=== PATIENT | female | born 1960 | race Caucasian/White ===

== ENCOUNTER 2017-05-27 19:19 | Emergency (ER) | payer OTHER, MEDICAID ==
[~2017-05-27 19:19] MED LIST: DIVA250T PO; IBUP800T23 PO; LAMO150T PO
[2017-05-27 19:20] VITALS: BP 129/73; PULSE 95; RESP 18; TEMP 98; O2SAT 95
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
[2017-05-27] MEDS ORDERED: IBUPROFEN 600 MG TAB PO ONE (20:00)
[2017-05-27] MEDS ORDERED: CEPHALEXIN MONOHYDRATE 500 MG CAP PO ONE (20:00)
[2017-05-27] MEDS ORDERED: IBUP-232 PO (20:03)
[2017-05-27] MEDS ORDERED: CEPH-460 PO (20:03)
== END 2017-05-27 20:14 | disposition home or self-care (01) ==
LOC: NEPD 19:19
DX: S61.217A Laceration without foreign body of left little finger without damage to nail, initial encounter (principal); F17.210 Nicotine dependence, cigarettes, uncomplicated; W26.0XXA Contact with knife, initial encounter; Y93.G1 Activity, food preparation and clean up; Y92.000 Kitchen of unspecified non-institutional (private) residence as the place of occurrence of the external cause
CPT/HCPCS: 99283

== ENCOUNTER 2017-09-18 13:33 | Emergency (ER) | payer OTHER, MEDICAID ==
[~2017-09-18] VITALS: Ht 167.6 cm; Wt 65.9 kg
[~2017-09-18 13:33] MED LIST changes: +CEPH-460 PO; +IBUP-232 PO
[2017-09-18 13:34] VITALS: BP 146/89; PULSE 64; RESP 20; TEMP 97.5; O2SAT 100
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
--- NOTE | 2017-09-18 15:25 | RADRPT ---
EXAM DATE/TIME: 09/18/2017 14:36 [facility] COMPARISON: No previous studies available for comparison. INDICATIONS : Dropped something on her nose this morning. Pain on left side. MEDICAL HISTORY : None. SURGICAL HISTORY : None. ENCOUNTER: Initial ACUITY: 1 day PAIN SCORE: 7/10 LOCATION: Left Nasal bones. FINDINGS: Lateral and Ruiz views of the nasal bones demonstrate no evidence of fracture. There is no signifi cant soft tissue swelling. The infraorbital rims are intact. CONCLUSION: Negative trauma study. Lorenzo Heard MD on September 18, 2017 at 15:21 Board Certified Radiologist. This report was verified electronically.
== END 2017-09-18 16:05 | disposition home or self-care (01) ==
LOC: NEPK 13:33
DX: S00.83XA Contusion of other part of head, initial encounter (principal); F32.9 Major depressive disorder, single episode, unspecified; F17.210 Nicotine dependence, cigarettes, uncomplicated; W22.8XXA Striking against or struck by other objects, initial encounter; Z88.0 Allergy status to penicillin; Z85.828 Personal history of other malignant neoplasm of skin; Z79.899 Other long term (current) drug therapy
CPT/HCPCS: 70160; 99283

== ENCOUNTER 2018-01-07 09:32 | Inpatient (IN) | payer OTHER, MEDICAID, MEDICARE ==
[~2018-01-07] VITALS: Ht 165.1 cm; Wt 62.9 kg
[~2018-01-07 09:32] MED LIST changes: -CEPH-460 PO; -IBUP-232 PO; -IBUP800T23 PO
[2018-01-07 09:38] VITALS: BP 121/88; PULSE 83; RESP 18; TEMP 98.2; O2SAT 98
[2018-01-07] MEDS ORDERED: SODIUM CHLOR 0.9% 1000 ML INJ 1,000 ML IV ONE (10:00)
[2018-01-07] MEDS ORDERED: VANCOMYCIN INJ 1,000 MG in SODIUM CHLOR 0.9% 250 ML INJ 250 ML IV ONE (10:00)
[2018-01-07] MEDS ORDERED: AZTREONAM INJ 2,000 MG in SODIUM CHLORIDE 0.9% INJ 100 ML IV ONE (10:00)
[2018-01-07] MEDS ORDERED: TETANUS/DIPHTHERIA TOXOID ADULT 0.5 ML VIAL IM ONE (10:00)
[2018-01-07 10:21] VITALS: O2SAT 98
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
[2018-01-07 10:47] LABS: AUTOMATED NEUTROPHIL # 7.6 TH/MM3 (1.8-7.7); BASOPHIL % 0.4 % (0.0-2.0); EOSINOPHIL # 0.1 TH/MM3 (0-0.4); HEMATOCRIT 34.2 % (35.0-46.0); HEMOGLOBIN 11.5 GM/DL (11.6-15.3); LYMPH % 21.6 % (9.0-44.0); LYMPHOCYTE # 2.4 TH/MM3 (1.0-4.8); MEAN CELL VOLUME 87.8 FL (80.0-100.0); MEAN CORPUSCULAR HEMOGLOBIN 29.6 PG (27.0-34.0); MEAN CORPUSCULAR HGB CONC 33.7 % (32.0-36.0); MEAN PLATELET VOLUME 7.3 FL (7.0-11.0); MONO % 8.4 % (0.0-8.0); MONOCYTE # 0.9 TH/MM3 (0-0.9); NEUT % 68.6 % (16.0-70.0); PLATELET COUNT 314 TH/MM3 (150-450); RED CELL DISTRIBUTION WIDTH 13.4 % (11.6-17.2); WHITE BLOOD COUNT 11.1 TH/MM3 (4.0-11.0)
[2018-01-07 10:58] LABS: INTERNATIONAL NORMALIZED RATIO 1.1 RATIO; PROTHROMBIN TIME - PATIENT 10.7 SEC (9.8-11.6)
[2018-01-07 11:07] LABS: ALBUMIN 2.5 GM/DL (3.4-5.0); ALT (GPT) 103 U/L (10-53); AST (GOT) 34 U/L (15-37); BICARBONATE 28.5 MEQ/L (21.0-32.0); BLOOD UREA NITROGEN 16 MG/DL (7-18); CALCIUM 8.1 MG/DL (8.5-10.1); CHLORIDE 101 MEQ/L (98-107); CREATININE 0.69 MG/DL (0.50-1.00); GLOMERULAR FILTRATION RATE 88 ML/MIN (>89); GLUCOSE,RANDOM 81 MG/DL (74-106); MAGNESIUM 2.2 MG/DL (1.5-2.5); PHOSPHORUS 2.9 MG/DL (2.5-4.9); SODIUM (NA) 139 MEQ/L (136-145)
[2018-01-07 11:09] LABS: ALKALINE PHOSPHATASE 113 U/L (45-117); TOTAL BILIRUBIN ADULT 0.4 MG/DL (0.2-1.0); TOTAL PROTEIN 7.3 GM/DL (6.4-8.2)
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
[2018-01-07] MEDS ORDERED: DIVA500T3 PO (11:43)
[2018-01-07] MEDS ORDERED: TRAZ50TA12 PO (11:44)
[2018-01-07] MEDS ORDERED: LAMO25TA PO (11:44)
[2018-01-07] MEDS ORDERED: ONDANSETRON HCL 4 MG/2 ML VIAL IV ONE (12:00)
[2018-01-07] MEDS ORDERED: LIDOCAINE HCL 1% PF 5 ML SYRINGE OTHER ONE (12:00)
[2018-01-07] MEDS ORDERED: LACTATED RINGER'S 1000 ML INJ 1,000 ML IV ONE (12:00)
[2018-01-07] MEDS ORDERED: DEXAMETHASONE SOD PHOS 4 MG/ML VIAL IV ONE (12:00)
[2018-01-07] MEDS ORDERED: PROPOFOL 200 MG/20 ML AMP IV ONE (12:00)
[2018-01-07] MEDS ORDERED: SUCCINYLCHOLINE CHLORIDE 200 MG/10 ML VIAL IV ONE (12:00)
[2018-01-07] MEDS ORDERED: PHENYLEPH/NS 1000 MCG/10 ML SYR IV ONE (12:00)
[2018-01-07] MEDS ORDERED: ePHEDrine/NS 25 MG/5 ML SYRINGE IV ONE (12:00)
--- NOTE | 2018-01-07 12:31 | HHI.HP ---
HPI Service [facility] Hospitalists Primary Care Physician Unknown Admission Diagnosis Diagnoses: Travel History International Travel<30 Days: No Contact w/Intl Traveler <30 Da: No Traveled to Known Affected Are: No History of Present Illness This is a homeless woman who presented to [facility] ED with concern for leg infection. She states 6 weeks ago she scratched her leg on her bike. States it was healing well then three weeks ago she scratched it on a piece of metal at her boyfriends house. She states she had a tetanus shot 2 years ago. She was given another tetanus shot in the ED. Medical history significant for bipolar, denies any other medical problems including diabetes. She denies fevers and chills. States the leg has been draining and is painful. The patient received vancomycin and aztreonam in the ED. ER physician discussed case with ortho, ortho requested a CT with contrast to evaluate for abscess. She has a new PCP Dr. Traore. She also follows with Riaz De Jesus. Review of Systems Constitutional: COMPLAINS OF: Chills, DENIES: Fever Eyes: DENIES: Blurred vision, Vision loss Ears, nose, mouth, throat: DENIES: Tinnitus, Hoarseness, Ear Pain Respiratory: DENIES: Cough, Sputum production, Shortness of breath Cardiovascular: DENIES: Chest pain, Palpitations Gastrointestinal: DENIES: Abdominal pain, Constipation, Nausea, Vomiting Musculoskeletal: COMPLAINS OF: Joint pain, Joint Swelling Integumentary: COMPLAINS OF: Rash Neurologic: COMPLAINS OF: Localized weakness, DENIES: Speech Problems Psychiatric: COMPLAINS OF: Anxiety, Depression Past Family Social History Past Medical History Bipolar Past Surgical History Surgery on both knees Tonsillectomy Tubal ligation Reported Medications Lamotrigine 25 Mg Tab 25 Mg PO DAILY HS Divalproex ER (Divalproex Sodium) 500 Mg Tab 500 Mg PO BID Allergies: Coded Allergies: naproxen (Unverified Allergy, Mild, 01/07/18) penicillin G (Unverified Allergy, Mild, 01/07/18) Family History Mother with HTN and DM Physical Exam Vital Signs Vital Signs Date Time Temp Pulse Resp B/P (MAP) Pulse Ox O2 Delivery O2 Flow Rate FiO2 01/07/18 10:21 98 Room Air 01/07/18 10:21 98 Room Air 01/07/18 09:38 98.2 83 18 121/88 (99) 98 Physical Exam GENERAL: This is a well-nourished, well-developed patient, in no apparent distress. SKIN: Left lower extremity- anterior tibia with large necrotic wound, superior to this large wound is an additional 2 cm wound, both with eschar and surrounding erythema, both are draining, both are malodorous. HEAD: Atraumatic. Normocephalic. No temporal or scalp tenderness. EYES: Pupils equal round and reactive. Extraocular motions intact. No scleral icterus. No injection or drainage. ENT: Nose without bleeding, purulent drainage or septal hematoma. Throat without erythema, tonsillar hypertrophy or exudate. Uvula midline. Airway patent. NECK: Trachea midline. No JVD or lymphadenopathy. Supple, nontender, no meningeal signs. CARDIOVASCULAR: Regular rate and rhythm without murmurs, gallops, or rubs. RESPIRATORY: Clear to auscultation. Breath sounds equal bilaterally. No wheezes , rales, or rhonchi. GASTROINTESTINAL: Abdomen soft, non-tender, nondistended. No hepato-splenomegaly , or palpable masses. No guarding. MUSCULOSKELETAL: She is able to lift both legs against gravity. NEUROLOGICAL: Awake and alert. Motor and sensory grossly within normal limits. Normal speech. Laboratory Laboratory Tests Test 01/07/18 10:10 01/07/18 10:15 White Blood Count 11.1 Red Blood Count 3.90 Hemoglobin 11.5 Hematocrit 34.2 Mean Corpuscular Volume 87.8 Mean Corpuscular Hemoglobin 29.6 Mean Corpuscular Hemoglobin Concent 33.7 Red Cell Distribution Width 13.4 Platelet Count 314 Mean Platelet Volume 7.3 Neutrophils (%) (Auto) 68.6 Lymphocytes (%) (Auto) 21.6 Monocytes (%) (Auto) 8.4 Eosinophils (%) (Auto) 1.0 Basophils (%) (Auto) 0.4 Neutrophils # (Auto) 7.6 Lymphocytes # (Auto) 2.4 Monocytes # (Auto) 0.9 Eosinophils # (Auto) 0.1 Basophils # (Auto) 0.0 CBC Comment DIFF FINAL Differential Comment Prothrombin Time 10.7 Prothromb Time International Ratio 1.1 Activated Partial Thromboplast Time 25.1 Blood Urea Nitrogen 16 Creatinine 0.69 Random Glucose 81 Total Protein 7.3 Albumin 2.5 Calcium Level 8.1 Phosphorus Level 2.9 Magnesium Level 2.2 Alkaline Phosphatase 113 Aspartate Amino Transf (AST/SGOT) 34 Alanine Aminotransferase (ALT/SGPT) 103 Total Bilirubin 0.4 Sodium Level 139 Potassium Level 3.4 Chloride Level 101 Carbon Dioxide Level 28.5 Anion Gap 10 Estimat Glomerular Filtration Rate 88 Lipase 46 Lactic Acid Level 0.9 Date/Time Source Procedure Growth Status 01/07/18 10:15 Blood Peripheral Aerobic Blood Culture Pending Received 01/07/18 10:15 Blood Peripheral Anaerobic Blood Culture Pending Received Result Diagram: 01/07/18 1010 01/07/18 1010 Imaging Last Impressions Chest X-Ray 01/07/18 0956 Signed Impressions: Service Date/Time: Sunday, January 07, 2018 10:04 - CONCLUSION: Small opacity in the lower lateral right lung. No evidence of pneumothorax. Recommend followup films. Km Márquez MD Tibia/Fibula X-Ray 01/07/18 0000 Signed Impressions: Service Date/Time: Sunday, January 07, 2018 10:10 - CONCLUSION: 1. Osseous structures of the leg are intact. 2. Multifocal areas of gas in the soft tissues of the mid and distal leg without radiopaque foreign body. MD Nithya Balbuena VTE Risk Assessment Caprini VTE Risk Assessment: No/Low Risk (score <= 1) Caprini Risk Assessment Model Point Value = 1 Point Value = 2 Point Value = 3 Point Value = 5 Age 41-60 Minor surgery BMI > 25 kg/m2 Swollen legs Varicose veins or History of unexplained or recurrent spontaneous Oral contraceptives or hormone replacement Sepsis (< 1 month) Serious lung disease, including pneumonia (< 1 month) Abnormal pulmonary function Acute myocardial infarction Congestive heart failure (< 1 month) History of inflammatory bowel disease Medical patient at bed rest Age 61-74 Arthroscopic surgery Major open surgery (> 45 min) Laparoscopic surgery (> 45 min) Malignancy Confined to bed (> 72 hours) Immobilizing plaster cast Central venous access Age >= 75 History of VTE Family history of VTE Factor V Leiden Prothrombin [id number] Lupus anticoagulant Anticardiolipin antibodies Elevated serum homocysteine Heparin-induced thrombocytopenia Other congenital or acquired thrombophilia Stroke (< 1 month) Elective arthroplasty Hip, pelvis, or leg fracture Acute spinal cord injury (< 1 month) Prophylaxis Regimen Total Risk Factor Score Risk Level Prophylaxis Regimen 0-1 Low Early ambulation 2 Moderate Order ONE of the following: *Sequential Compression Device (SCD) *Heparin 5000 units SQ BID 3-4 Higher Order ONE of the following medications: *Heparin 5000 units SQ TID *Enoxaparin/Lovenox 40 mg SQ daily (WT < 150 kg, CrCl > 30 mL/min) *Enoxaparin/Lovenox 30 mg SQ daily (WT < 150 kg, CrCl > 10-29 mL/min) *Enoxaparin/Lovenox 30 mg SQ BID (WT < 150 kg, CrCl > 30 mL/min) AND/OR *Sequential Compression Device (SCD) 5 or more Highest Order ONE of the following medications: *Heparin 5000 units SQ TID (Preferred with Epidurals) *Enoxaparin/Lovenox 40 mg SQ daily (WT < 150 kg, CrCl > 30 mL/min) *Enoxaparin/Lovenox 30 mg SQ daily (WT < 150 kg, CrCl > 10-29 mL/min) *Enoxaparin/Lovenox 30 mg SQ BID (WT < 150 kg, CrCl > 30 mL/min) AND *Sequential Compression Device (SCD) Assessment and Plan Problem List: (1) Bipolar 1 disorder ICD Code: F31.9 - Bipolar disorder, unspecified (2) Hypokalemia ICD Code: E87.6 - Hypokalemia (3) Skin necrosis ICD Code: I96 - Gangrene, not elsewhere classified Status: Acute Assessment and Plan This is a 57 yo female with Left lower leg cellulitis - given exam, concern for osteo - ED physician spoke with ortho Dr. Norton, they would like a CT with contrast, this is pending - patient received one dose of vanc and aztreonam in the ED, will continue this (PCN allergic) - ID has been consulted - blood cultures ordered - wound cultures ordered - CRP ordered - lactic acid 0.9 - pain control Bipolar - resumed patients home meds Hypokalemia - replaced CM consulted for DC needs DVT prophy SCD to right LE Code Status Full. Discussed Condition With Dr. Cabrera Patient Physician Certification 2 Midnight Certification Type: Admission for Inpatient Services Order for Inpatient Services The services are ordered in accordance with Medicare regulations or non- Medicare payer requirements, as applicable. In the case of services not specified as inpatient-only, they are appropriately provided as inpatient services in accordance with the 2-midnight benchmark. Estimated LOS (days): 2 days is the estimated time the patient will need to remain in the hospital, assuming treatment plan goals are met and no additional complications. Post-Hospital Plan: Not yet determined Wilma Yeung MD January 07, 2018 12:31
[2018-01-07] MEDS ORDERED: IOHEXOL 350 MG/ML 10 ML VIAL (for RAD DIAG) IVCONTRAST ONE (12:45)
--- NOTE | 2018-01-07 13:13 | RADRPT ---
EXAM DATE/TIME: 01/07/2018 12:18 [place] COMPARISON: TIBIA/FIBULA LEFT (AP/LAT), January 07, 2018, 10:10. INDICATIONS : 3 week old wound to mid lower leg, lateral side. IV CONTRAST: 94 cc Omnipaque 350 (iohexol) IV RADIATION DOSE: 7.29 CTDIvol (mGy) MEDICAL HISTORY : Skin cancer SURGICAL HISTORY : Tubal ligation. Hysterectomy. ENCOUNTER: Initial ACUITY: 1 day PAIN SCALE: 0/10 LOCATION: Left Lower leg. TECHNIQUE: Volumetric scanning of the tibia and fibula was performed. Using automated exposure control and adju stment of the mA and/or kV according to patient size, radiation dose was kept as low as reasonably ac hievable to obtain optimal diagnostic quality images. DICOM format image data is available [facility] for review and comparison. FINDINGS: The osseous structures are intact. There are multifocal areas of cutaneous abnormality involving the anterior tissues of the mid calf th e distal calf and the medial tissues involving the proximal and distal calf. There is associated cut aneous thickening measuring up to 7 mm in thickness. There is no gas seen in the muscular layer. Th ere is also prominent soft tissue thickening without gas in the posterior right ankle measuring up to 1.8 cm. No radiopaque foreign body seen. CONCLUSION: Soft tissue gas seen on conventional radiographs is confined to the cutaneous and subcutaneous tissue s of the mid to distal calf. No deep soft tissue gas is seen. The osseous structures are radiograph ically intact. Km Márquez MD on January 07, 2018 at 13:04 Board Certified Radiologist. This report was verified electronically.
[2018-01-07] MEDS: DIVALPROEX SODIUM E.R. 500 MG TAB PO SCH ×2 (13:14→22:35)
[2018-01-07] MEDS ORDERED: POTASSIUM CHLORIDE 10 MEQ CONTROLLED RELEASE TAB PO ONE (13:30)
[2018-01-07 16:00] VITALS: BP 125/83; PULSE 74; RESP 15; TEMP 96; O2SAT 100
--- NOTE | 2018-01-07 16:39 | PD.ID.CON ---
History of Present Illness Service ID Consult Requested By Dr Yeung Reason for Consult CARLYLE ne rotic wound Primary Care Physician Unknown Diagnoses: History of Present Illness 57 yo F non diabetci preesent with draining L calf wound, worsening swelling , redness, drainage for 2-3 weeks She developped black discoloration over the area + preceding penetrating accidental trauma No fever Minimal leukocytosis, though ANC is wnl ? h/o ETOHism + tobnacco positive CT showed air in soft tissues Review of Systems Except as stated in HPI: all other systems reviewed are Neg Past Family Social History Allergies: Coded Allergies: naproxen (Unverified Allergy, Mild, 01/07/18) penicillin G (Unverified Allergy, Mild, 01/07/18) Past Medical History skin ca tobaccoism depression Past Surgical History TL Active Ordered Medications azactam vanco Family History reviewed/NC to current ID problem Social History + Tobacco.b 1/2 ppd No ETOH. No Illicit Drugs. Physical Exam Vital Signs Vital Signs Date Time Temp Pulse Resp B/P (MAP) Pulse Ox O2 Delivery O2 Flow Rate FiO2 01/07/18 10:21 98 Room Air 01/07/18 10:21 98 Room Air 01/07/18 09:38 98.2 83 18 121/88 (99) 98 Physical Exam CONSTITUTIONAL/GENERAL: This is a thin patient, in no apparent distress. TUBES/LINES/DRAINS: SKIN: No jaundice, rashes, or lesions. Skin temperature appropriate. Not diaphoretic. HEAD: Atraumatic. Normocephalic. EYES: Pupils equal and round and reactive. Extraocular motions intact. No scleral icterus. No injection or drainage. Fundi not examined. ENT: Hearing grossly normal. Nose without bleeding or purulent drainage. Throat without visible erythema, exudates, masses, or lesions. POor dentition NECK: Trachea midline. Supple, nontender. No palpable thyroid enlargement or nodularity. CARDIOVASCULAR: Regular rate and rhythm without murmurs, gallops, or rubs. No JVD. Peripheral pulses symmetric. Excellent 2/2 b/l DP pulses RESPIRATORY/CHEST: Symmetric, unlabored respirations. Clear to auscultation. Breath sounds equal bilaterally. No wheezes, rales, or rhonchi. GASTROINTESTINAL: Abdomen soft, non-tender, nondistended. No hepato-splenomegaly , or palpable masses. No guarding. Bowel sounds present. GENITOURINARY: Without palpable bladder distension. MUSCULOSKELETAL: Extremities without clubbing, cyanosis, no loss of skin appendages Large wound with irregular boredrs and necrotic tissues in bed + serosangius d/c + strong anaerobic odor edema. No joint tenderness or effusion noted. No calf tenderness. No mottling or clubbing. There is ascending cellulitis and lymphangitis and inner thigh area has some red streaks NEUROLOGICAL: Awake and alert. Motor and sensory grossly within normal limits. Follows commands. Cognitively sharp. Moves all extremities. PSYCHIATRIC: No obvious anxiety/depression. no apparent hallucinations or other psychotic thought process. Laboratory Laboratory Tests Test 01/07/18 10:10 01/07/18 10:15 White Blood Count 11.1 Red Blood Count 3.90 Hemoglobin 11.5 Hematocrit 34.2 Mean Corpuscular Volume 87.8 Mean Corpuscular Hemoglobin 29.6 Mean Corpuscular Hemoglobin Concent 33.7 Red Cell Distribution Width 13.4 Platelet Count 314 Mean Platelet Volume 7.3 Neutrophils (%) (Auto) 68.6 Lymphocytes (%) (Auto) 21.6 Monocytes (%) (Auto) 8.4 Eosinophils (%) (Auto) 1.0 Basophils (%) (Auto) 0.4 Neutrophils # (Auto) 7.6 Lymphocytes # (Auto) 2.4 Monocytes # (Auto) 0.9 Eosinophils # (Auto) 0.1 Basophils # (Auto) 0.0 CBC Comment DIFF FINAL Differential Comment Prothrombin Time 10.7 Prothromb Time International Ratio 1.1 Activated Partial Thromboplast Time 25.1 Blood Urea Nitrogen 16 Creatinine 0.69 Random Glucose 81 Total Protein 7.3 Albumin 2.5 Calcium Level 8.1 Phosphorus Level 2.9 Magnesium Level 2.2 Alkaline Phosphatase 113 Aspartate Amino Transf (AST/SGOT) 34 Alanine Aminotransferase (ALT/SGPT) 103 Total Bilirubin 0.4 Sodium Level 139 Potassium Level 3.4 Chloride Level 101 Carbon Dioxide Level 28.5 Anion Gap 10 Estimat Glomerular Filtration Rate 88 C-Reactive Protein 10.30 Lipase 46 Lactic Acid Level 0.9 Date/Time Source Procedure Growth Status 01/07/18 10:15 Blood Peripheral Aerobic Blood Culture Pending Received 01/07/18 10:15 Blood Peripheral Anaerobic Blood Culture Pending Received 01/07/18 13:10 Wound Leg Gram Stain Pending Received 01/07/18 13:10 Wound Leg Wound Culture Pending Received Result Diagram: 01/07/18 1010 01/07/18 1010 Imaging Last Impressions Chest X-Ray 01/07/18 0956 Signed Impressions: Service Date/Time: Sunday, January 07, 2018 10:04 - CONCLUSION: Small opacity in the lower lateral right lung. No evidence of pneumothorax. Recommend followup films. Km Márquez MD Tibia/Fibula X-Ray 01/07/18 0000 Signed Impressions: Service Date/Time: Sunday, January 07, 2018 10:10 - CONCLUSION: 1. Osseous structures of the leg are intact. 2. Multifocal areas of gas in the soft tissues of the mid and distal leg without radiopaque foreign body. Km Márquez MD Lower Extremity CT 01/07/18 0000 Signed Impressions: Service Date/Time: Sunday, January 07, 2018 12:18 - CONCLUSION: Soft tissue gas seen on conventional radiographs is confined to the cutaneous and subcutaneous tissues of the mid to distal calf. No deep soft tissue gas is seen. The osseous structures are radiographically intact. Km Márquez MD Assessment and Plan Assessment and Plan Gas gangrene LLE following traume - likley mixed aerobic/anaerobic infx - this is a limb threatening infection High grade self reported PCN allergy:hives No e/o vascular insufficiency clinically despite + tobacco hx REC's: surgical treatment is important. Will need urgent debridement of all nectoric tissue with likley VAC placement cotn abx: vanco azactam and add flagyl for anaerobic coverage add clindamycin to cover for GAS further rec's to follow P clx case was dw Dr Winters Discussed Condition With Trinity Yousif RN, MD January 07, 2018 16:39
[2018-01-07] MEDS: CLINDAMYCIN 900 MG/NS PREMIX 50 ML IV SCH ×2 (17:00→17:47)
[2018-01-07] MEDS: metroNIDAZOLE 500 MG INJ 100 ML IV SCH ×2 (17:04→17:53)
[2018-01-07] MEDS: AZTREONAM INJ 2,000 MG in SODIUM CHLORIDE 0.9% INJ 100 ML IV SCH ×2 (17:04→17:45)
--- NOTE | 2018-01-07 17:37 | HHI.PR ---
Immediate Post Op Note Procedure Date: January 07, 2018 Pre Op Diagnosis: left lower extremity gas gangrene Post Op Diagnosis: same Surgeon: Sorin Winters MD Technician Anatomic Pathology(s): see or sheet Procedure: excisional debridement of soft tissue to left lower extremity with vac placement Findings: purulent drainage Complications: none Specimen(s) removed: abscess Estimated blood loss: 20cc Anesthesia: General Drains: Hemovac Patient to: PACU Patient Condition: Fair Sorin Winters MD January 07, 2018 17:37
--- NOTE | 2018-01-07 17:48 | MB ---
cc: Sorin Winters MD DATE: 01/07/2018 CHIEF COMPLAINT: Left lower extremity pain, infection. HISTORY OF PRESENT ILLNESS: The patient is a 57-year-old female, homeless, who states that she had scraped her leg 6 weeks ago from her bike and then re-scratched it the other day. She noted after scratching it again that she had increased pain and drainage and the pain became severe 10/10, sharp, radiates down her leg and up her leg. She complains of worse with movement, better with lying still. She denies any fevers but came to the emergency department for evaluation including CT scan showing some subcutaneous soft tissue gas, no overt abscess, no evidence of osteomyelitis. She states she has never had this before. He does note she is homeless and is a smoker daily. PAST MEDICAL HISTORY: Bipolar. PAST SURGICAL HISTORY: Bilateral knee surgery, tonsillectomy, tubal ligation. MEDICATIONS: See EMR. ALLERGIES: NAPROXEN AND PENICILLIN. FAMILY HISTORY: Diabetes and hypertension in mother. SOCIAL HISTORY: Positive smoking. Denies ETOH or IVDA. REVIEW OF SYSTEMS: GENERAL: Denies fever, chills. HEENT: Denies eye pain, ear pain. NECK: Denies neck swelling. LUNGS: Denies cough or wheeze. HEART: Denies palpitations or chest pain. ABDOMEN: Denies nausea or vomiting. GENITOURINARY: Denies dysuria and hematuria. ENDOCRINE: Denies polyuria or polydipsia. INTEGUMENT: Complaints of left lower extremity cellulitis with rash and abscess drainage. EXTREMITIES: Full range of motion. Palpable pulse bilaterally. Edema to left lower extremity. A 10 x 7 cm eschar, necrotic tissue, smaller superior 3 x 3 ulceration with purulent material draining from this. Warm with a cellulitic expansing 20 cm x 15 cm. PHYSICAL EXAMINATION: GENERAL: In no acute distress. VITAL SIGNS: Temperature 98.2, pulse 83, respirations 18, blood pressure 121/88, saturation 98%. HEENT: Pupils equal, round, reactive. NECK: Supple. Trachea midline. LUNGS: Clear to auscultation. Bilateral expansion. HEART: S1, S2. Regular. ABDOMEN: Soft, nontender, nondistended. EXTREMITIES: As above with eschar left lateral anterior extremity with purulent drainage and evidence of crepitus, cellulitic changes, 20 x 15 cm, smaller ulceration just superior to this. NEUROLOGIC: GCS of 15. 5/5 motor in all extremities. NEUROPSYCH: Appropriate mood, bipolar. LABORATORY/DIAGNOSTIC DATA: WBC 11.1, hemoglobin 11.5, hematocrit 34.2, platelets 314. Sodium 139, potassium 3.4, BUN is 16, creatinine 0.69, lactate 0.9, AST 34, ALT 103, lipase 46, albumin 2.5. CT reviewed by myself: Soft tissue gas seen confined to subcutaneous tissues and cutaneous tissues mid-distal calf. ASSESSMENT: The patient is a 57-year-old female with gas gangrene, florid lower extremity infection. PLAN: After a full clinical, radiologic and laboratory workup, the patient is with the above-named issues. At this point the patient has crepitus and skin sloughing with necrotic material and purulent drainage from the left lower extremity. The patient needs emergent debridement in the OR. Discussed with the patient in detail. Discussed we will attempt local infectious control and attempt for limb salvage, which is likely reasonable; however, if tissue necrosis continues and infection becomes more rampant, discussed with the patient possible amputation; however, this is unlikely. Further discussed and the need for intravenous antibiotics, pain control. The patient needs to be n.p.o. Again, we will plan for emergent surgical intervention with VAC placement. MD SHEFALI Allen/JIMMIE , 05:22 PM , 05:47 PM
[2018-01-07] MEDS ORDERED: lamoTRIgine 25 MG TAB PO SCH (18:00)
[2018-01-07] MEDS ORDERED: *morphine SULFATE 4 MG/ML PERIprocedure ONLY ONE (18:43)
[2018-01-07] MEDS ORDERED: MIDAZOLAM HCL 2 MG/2 ML VIAL ONE (18:45)
[2018-01-07] MEDS ORDERED: *RESP: ALBUTEROL 2.5 MG/3 ML NEB (PRN) PERIprocedural Use ONLY NEB ONE (18:47)
[2018-01-07] MEDS ORDERED: *HYDROmorphone PF 0.5 MG/0.5 ML PERIprocedure ONLY ONE (18:52)
[2018-01-07] MEDS ORDERED: DO NOT ADM ANY ANTICOAGULANT DRUGS PRN (19:00)
[2018-01-07 20:00] VITALS: BP 120/68; PULSE 83; RESP 18; TEMP 97.2; O2SAT 96
--- NOTE | 2018-01-07 20:39 | EKG ---
Date Performed: 01/07/2018 Time Performed: 10:33:14 PTAGE: 57 years EKG: Sinus rhythm NORMAL ECG PREVIOUS TRACING : 04/06/2005 13.01 Since the previous tracing, no significant change noted DOCTOR: Ryan Pires Interpretating Date/Time 01/07/2018 20:38:55
[2018-01-08] VITALS: BP 117/68; PULSE 76; RESP 18; TEMP 97; O2SAT 96
[2018-01-08] MEDS ORDERED: HYDROmorphone HCL PF 0.5 MG/0.5 ML SYRINGE IV PUSH ONE ×2 (02:15→06:45)
[2018-01-08 08:00] VITALS: BP 128/59; PULSE 78; RESP 19; TEMP 97.6; O2SAT 98
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
[2018-01-08] MEDS ORDERED: lamoTRIgine 25 MG TAB PO SCH (09:00)
[2018-01-08] MEDS ORDERED: POTASSIUM CHLORIDE 10 MEQ CONTROLLED RELEASE TAB PO ONE (09:15)
[2018-01-08] MEDS: metroNIDAZOLE 500 MG INJ 100 ML IV SCH ×2 (09:42→16:43)
[2018-01-08] MEDS: DIVALPROEX SODIUM E.R. 500 MG TAB PO SCH ×2 (09:43→22:15)
[2018-01-08] MEDS: ACETAMINOPHEN/HYDROcodone 325 MG/5 MG TAB PO PRN ×2 (09:44→22:21)
[2018-01-08] MEDS ORDERED: ACETAMINOPHEN/HYDROcodone 325 MG/5 MG TAB PO PRN (09:45)
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
[2018-01-08] MEDS: CLINDAMYCIN 900 MG/NS PREMIX 50 ML IV SCH ×2 (11:08→16:43)
[2018-01-08] MEDS: AZTREONAM INJ 2,000 MG in SODIUM CHLORIDE 0.9% INJ 100 ML IV SCH ×2 (11:17→16:44)
[2018-01-08 12:00] VITALS: BP 95/60; PULSE 79; RESP 18; TEMP 97.6; O2SAT 97
[2018-01-08] MEDS: VANCOMYCIN INJ 1,000 MG in SODIUM CHLOR 0.9% 250 ML INJ 250 ML IV SCH (12:49)
[2018-01-08 16:00] VITALS: BP 110/66; PULSE 74; RESP 19; TEMP 97.6; O2SAT 97
--- NOTE | 2018-01-08 16:48 | HHI.PR ---
Subjective Subjective Notes no acute issues, c/o LLE pain but better, tolerating diet Objective Vitals/I&O Vital Signs Date Time Temp Pulse Resp B/P (MAP) Pulse Ox O2 Delivery O2 Flow Rate FiO2 01/08/18 12:00 97.6 79 18 95/60 (72) 97 01/07/18 19:15 Nasal Cannula 2 Labs Laboratory Tests Test 01/08/18 13:25 Potassium Level 4.1 Date/Time Source Procedure Growth Status 01/07/18 10:15 Blood Peripheral Aerobic Blood Culture - Preliminary NO GROWTH IN 1 DAY Resulted 01/07/18 10:15 Blood Peripheral Anaerobic Blood Culture - Preliminary NO GROWTH IN 1 DAY Resulted 01/07/18 18:00 Wound Leg Fungal Smear - Final NO FUNGAL ELEMENTS SEEN. Resulted 01/07/18 18:00 Wound Leg Fungal Culture Pending Resulted Extremities: Other (LLE vac good seal, less swelling) A/P Assessment and Plan POD 1 I and D with vac LLE plan reg diet iv abx pain control will change vac likely monday Sorin Winters MD January 08, 2018 16:48
[2018-01-08 19:30] VITALS: O2SAT 97
[2018-01-08 20:00] VITALS: BP 122/68; PULSE 87; RESP 19; TEMP 98.1; O2SAT 97
[2018-01-08] MEDS: lamoTRIgine 25 MG TAB PO SCH (22:16)
[2018-01-09] VITALS (7 sets, daily range): BP systolic 125–148; BP diastolic 68–93; PULSE 79–84; RESP 18–20; TEMP 97.5–97.9; O2SAT 95–98
[2018-01-09] MEDS: metroNIDAZOLE 500 MG INJ 100 ML IV SCH ×4 (00:29→22:50)
[2018-01-09] MEDS: CLINDAMYCIN 900 MG/NS PREMIX 50 ML IV SCH ×3 (01:29→18:12)
[2018-01-09] MEDS: AZTREONAM INJ 2,000 MG in SODIUM CHLORIDE 0.9% INJ 100 ML IV SCH ×3 (02:26→19:25)
[2018-01-09] MEDS: DIVALPROEX SODIUM E.R. 500 MG TAB PO SCH ×2 (09:23→22:46)
[2018-01-09] MEDS: ACETAMINOPHEN/HYDROcodone 325 MG/5 MG TAB PO PRN ×3 (09:23→22:49)
--- NOTE | 2018-01-09 09:49 | HHI.PR ---
Subjective Subjective Notes "It feels like ants are crawling on my legs!" Objective Vitals/I&O Vital Signs Date Time Temp Pulse Resp B/P (MAP) Pulse Ox O2 Delivery O2 Flow Rate FiO2 01/09/18 08:00 97.6 83 19 148/93 (111) 97 01/08/18 19:30 Nasal Cannula 2.00 Labs Laboratory Tests Test 01/08/18 13:25 Potassium Level 4.1 Date/Time Source Procedure Growth Status 01/07/18 10:15 Blood Peripheral Aerobic Blood Culture - Preliminary NO GROWTH IN 1 DAY Resulted 01/07/18 10:15 Blood Peripheral Anaerobic Blood Culture - Preliminary NO GROWTH IN 1 DAY Resulted 01/07/18 18:00 Wound Leg Fungal Smear - Final NO FUNGAL ELEMENTS SEEN. Resulted 01/07/18 18:00 Wound Leg Fungal Culture Pending Resulted Cardiovascular: Regular Lungs: Clear Abdomen: Non-distended, Non-tender Narrative Exam LEFT lower leg with Wound Vac in place; good seal A/P Assessment and Plan 57 year old female POD2 I&D LLW with Wound Vac placement -Regular diet -Continue antibiotics -[place] for pain; added breakthrough Morphine -Plan for Wound Vac change tomorrow; PRN pain meds available for dressing change -OOB as tolerated Attending Statement patient seen at bedside doing better no fevers vac good seal Attestation The exam, history, and the medical decision-making described in the above note were completed with the assistance of the mid-level provider. I reviewed and agree with the findings presented. I attest that I had a [id number] encounter with the patient on the same day, and personally performed and documented my assessment and findings in the medical record. Sherley Rodriguez/First Chinyere CARBONE January 09, 2018 09:49 Sorin Winters MD January 12, 2018 22:51
[2018-01-09] MEDS: MORPHINE SULFATE 4 MG/ML INJ IV PUSH PRN (10:42)
[2018-01-09] MEDS: VANCOMYCIN INJ 1,000 MG in SODIUM CHLOR 0.9% 250 ML INJ 250 ML IV SCH (11:00)
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
--- NOTE | 2018-01-09 20:29 | HHI.IDPN ---
Subjective Subjective Remarks emergent surgery pain is much better no fever tolerates abx ok + diarrhea Antibiotics vanco azactam flagyl clinda Allergies: Coded Allergies: naproxen (Unverified Allergy, Mild, 01/07/18) penicillin G (Unverified Allergy, Mild, 01/07/18) Objective . Vital Signs Date Time Temp Pulse Resp B/P (MAP) Pulse Ox O2 Delivery O2 Flow Rate FiO2 01/09/18 17:31 98 21 01/09/18 16:00 97.6 79 19 139/80 (99) 98 01/09/18 12:00 97.5 84 18 141/93 (109) 98 01/09/18 10:14 96 21 01/09/18 08:00 97.6 83 19 148/93 (111) 97 01/09/18 00:00 97.9 82 19 125/68 (87) 95 01/09/18 01/09/18 01/10/18 15:00 23:00 07:00 Intake Total 1200 ml Balance 1200 ml Intake Oral 1200 ml # Voids 9 # Bowel Movements 3 . Laboratory Tests Test 01/08/18 13:25 Potassium Level 4.1 MEQ/L Microbiology Date/Time Source Procedure Growth Status 01/07/18 10:15 Blood Peripheral Aerobic Blood Culture - Preliminary NO GROWTH IN 2 DAYS Resulted 01/07/18 10:15 Blood Peripheral Anaerobic Blood Culture - Preliminary NO GROWTH IN 2 DAYS Resulted 01/07/18 10:10 Blood Peripheral Aerobic Blood Culture - Preliminary NO GROWTH IN 2 DAYS Resulted 01/07/18 10:10 Blood Peripheral Anaerobic Blood Culture - Preliminary NO GROWTH IN 2 DAYS Resulted 01/07/18 18:00 Wound Leg Fungal Smear - Final NO FUNGAL ELEMENTS SEEN. Resulted 01/07/18 18:00 Wound Leg Fungal Culture Pending Resulted 01/07/18 18:00 Wound Leg Acid Fast Stain - Final NO ACID FAST BACILLI SEEN Resulted 01/07/18 18:00 Wound Leg Mycobacterial Culture Pending Resulted 01/07/18 18:00 Wound Leg Gram Stain - Final Complete 01/07/18 18:00 Wound Culture - Final Pseudomonas Aeruginosa S. Aureus Mrsa Group A Beta Strep Complete 01/07/18 13:10 Wound Leg Gram Stain - Final Resulted 01/07/18 13:10 Wound Culture - Preliminary Pseudomonas Aeruginosa S. Aureus Mrsa Group A Beta Strep Gram Negative Clark Resulted Imaging Last Impressions Chest X-Ray 01/07/18 0956 Signed Impressions: Service Date/Time: Sunday, January 07, 2018 10:04 - CONCLUSION: Small opacity in the lower lateral right lung. No evidence of pneumothorax. Recommend followup films. Km Márquez MD Tibia/Fibula X-Ray 01/07/18 0000 Signed Impressions: Service Date/Time: Sunday, January 07, 2018 10:10 - CONCLUSION: 1. Osseous structures of the leg are intact. 2. Multifocal areas of gas in the soft tissues of the mid and distal leg without radiopaque foreign body. Km Márquez MD Lower Extremity CT 01/07/18 0000 Signed Impressions: Service Date/Time: Sunday, January 07, 2018 12:18 - CONCLUSION: Soft tissue gas seen on conventional radiographs is confined to the cutaneous and subcutaneous tissues of the mid to distal calf. No deep soft tissue gas is seen. The osseous structures are radiographically intact. Km Márquez MD Physical Exam CONSTITUTIONAL/GENERAL: This is a thin patient, in no apparent distress. TUBES/LINES/DRAINS: SKIN: No jaundice, rashes, or lesions. Skin temperature appropriate. Not diaphoretic. CARDIOVASCULAR: Regular rate and rhythm without murmurs, gallops, or rubs. No JVD. Peripheral pulses symmetric. Excellent 2/2 b/l DP pulses RESPIRATORY/CHEST: Symmetric, unlabored respirations. Clear to auscultation. Breath sounds equal bilaterally. No wheezes, rales, or rhonchi. GASTROINTESTINAL: Abdomen soft, non-tender, nondistended. No hepato-splenomegaly , or palpable masses. No guarding. Bowel sounds present. GENITOURINARY: Without palpable bladder distension. MUSCULOSKELETAL: Extremities without clubbing, cyanosis, no loss of skin appendages VAC in palce; decrease edema no erythema, not much tender Lymphangitis resolved There is ascending cellulitis and lymphangitis and inner thigh area has some red streaks NEUROLOGICAL: Awake and alert. Motor and sensory grossly within normal limits. Follows commands c Assessment & Plan Remarks Gas gangrene LLE following traume - likley mixed aerobic/anaerobic infx: polimicrobial, including GAS, MRSA, PSAE and anaerobs - sp emeergent debridement, VAC High grade self reported PCN allergy:hives No e/o vascular insufficiency clinically despite + tobacco hx abx associated diarrhea REC's: cotn abx: vanco azactam cont flagyl for anaerobic coverage clinda clindamycin to cover for GAS ro c.diff Trinity Preez MD January 09, 2018 20:29
[2018-01-09] MEDS: lamoTRIgine 25 MG TAB PO SCH (22:45)
[2018-01-10] VITALS: BP 129/82; PULSE 77; RESP 20; TEMP 97.7; O2SAT 96
[2018-01-10] MEDS: CLINDAMYCIN 900 MG/NS PREMIX 50 ML IV SCH ×3 (00:04→17:23)
[2018-01-10] MEDS: AZTREONAM INJ 2,000 MG in SODIUM CHLORIDE 0.9% INJ 100 ML IV SCH ×3 (00:39→17:23)
[2018-01-10] MEDS ORDERED: MORPHINE SULFATE 4 MG/ML INJ IV SCH (06:00)
[2018-01-10] MEDS: ACETAMINOPHEN/HYDROcodone 325 MG/5 MG TAB PO PRN ×3 (07:39→21:14)
[2018-01-10] MEDS: DIVALPROEX SODIUM E.R. 500 MG TAB PO SCH ×2 (07:39→21:15)
[2018-01-10] MEDS: metroNIDAZOLE 500 MG INJ 100 ML IV SCH ×2 (07:39→16:18)
[2018-01-10 08:00] VITALS: BP 139/85; PULSE 78; RESP 18; TEMP 97.6; O2SAT 98
--- NOTE | 2018-01-10 09:37 | HHI.PR ---
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 With Diagnosis of Left lower extremity Gas Gangrene status post Excisional debridement of soft tissue to the Left lower extremity with Vacuum placement, 01/07/[address] Sorin Winters. 01/09: Followed by General Surgery POD #2, continue wound Vac, antibiotics, pain management. 01/10: Seen in her bedroom, POD #3, has vacuum in place on left area, continue antibiotics. no nausea, vomit or diarrhea. Objective Vital Signs Date Time Temp Pulse Resp B/P (MAP) Pulse Ox O2 Delivery O2 Flow Rate FiO2 01/10/18 08:00 97.6 78 18 139/85 (103) 98 01/10/18 00:00 97.7 77 20 129/82 (98) 96 01/09/18 20:00 97.8 80 20 127/75 (92) 95 01/09/18 17:31 98 21 01/09/18 16:00 97.6 79 19 139/80 (99) 98 01/09/18 12:00 97.5 84 18 141/93 (109) 98 01/09/18 10:14 96 21 I/O 01/09/18 01/09/18 01/09/18 01/10/18 01/10/18 01/10/18 07:00 15:00 23:00 07:00 15:00 23:00 Intake Total 390 ml 300 ml 1500 ml 990 ml Output Total 100 ml Balance 290 ml 300 ml 1500 ml 990 ml Intake Oral 240 ml 1200 ml 840 ml IV Total 150 ml 300 ml 300 ml 150 ml Drainage Total 100 ml # Voids 3 9 6 # Bowel Movements 0 3 0 Result Diagram: 01/07/18 1010 01/08/18 1325 Imaging Last Impressions Chest X-Ray 01/07/18 0956 Signed Impressions: Service Date/Time: Sunday, January 07, 2018 10:04 - CONCLUSION: Small opacity in the lower lateral right lung. No evidence of pneumothorax. Recommend followup films. Km Márquez MD Tibia/Fibula X-Ray 01/07/18 0000 Signed Impressions: Service Date/Time: Sunday, January 07, 2018 10:10 - CONCLUSION: 1. Osseous structures of the leg are intact. 2. Multifocal areas of gas in the soft tissues of the mid and distal leg without radiopaque foreign body. Km Márquez MD Lower Extremity CT 01/07/18 0000 Signed Impressions: Service Date/Time: Sunday, January 07, 2018 12:18 - CONCLUSION: Soft tissue gas seen on conventional radiographs is confined to the cutaneous and subcutaneous tissues of the mid to distal calf. No deep soft tissue gas is seen. The osseous structures are radiographically intact. Km Márquez MD Procedures With Diagnosis of Left lower extremity Gas Gangrene status post Excisional debridement of soft tissue to the Left lower extremity with Vacuum placement, 01/07/[address] Doctor Sorin Winters. Other Results Laboratory Tests Test 01/07/18 10:10 01/07/18 10:15 01/08/18 13:25 White Blood Count 11.1 TH/MM3 Red Blood Count 3.90 MIL/MM3 Hemoglobin 11.5 GM/DL Hematocrit 34.2 % Mean Corpuscular Volume 87.8 FL Mean Corpuscular Hemoglobin 29.6 PG Mean Corpuscular Hemoglobin Concent 33.7 % Red Cell Distribution Width 13.4 % Platelet Count 314 TH/MM3 Mean Platelet Volume 7.3 FL Neutrophils (%) (Auto) 68.6 % Lymphocytes (%) (Auto) 21.6 % Monocytes (%) (Auto) 8.4 % Eosinophils (%) (Auto) 1.0 % Basophils (%) (Auto) 0.4 % Neutrophils # (Auto) 7.6 TH/MM3 Lymphocytes # (Auto) 2.4 TH/MM3 Monocytes # (Auto) 0.9 TH/MM3 Eosinophils # (Auto) 0.1 TH/MM3 Basophils # (Auto) 0.0 TH/MM3 CBC Comment DIFF FINAL Differential Comment Prothrombin Time 10.7 SEC Prothromb Time International Ratio 1.1 RATIO Activated Partial Thromboplast Time 25.1 SEC Blood Urea Nitrogen 16 MG/DL Creatinine 0.69 MG/DL Random Glucose 81 MG/DL Total Protein 7.3 GM/DL Albumin 2.5 GM/DL Calcium Level 8.1 MG/DL Phosphorus Level 2.9 MG/DL Magnesium Level 2.2 MG/DL Alkaline Phosphatase 113 U/L Aspartate Amino Transf (AST/SGOT) 34 U/L Alanine Aminotransferase (ALT/SGPT) 103 U/L Total Bilirubin 0.4 MG/DL Sodium Level 139 MEQ/L Potassium Level 3.4 MEQ/L 4.1 MEQ/L Chloride Level 101 MEQ/L Carbon Dioxide Level 28.5 MEQ/L Anion Gap 10 MEQ/L Estimat Glomerular Filtration Rate 88 ML/MIN C-Reactive Protein 10.30 MG/DL Lipase 46 U/L Lactic Acid Level 0.9 mmol/L Objective Remarks GENERAL: No acute distress. SKIN: Left lower extremity- Vacuum in place. HEAD: Atraumatic. Normocephalic. No temporal or scalp tenderness. EYES: Pupils equal round and reactive. Extraocular motions intact. No scleral icterus. No injection or drainage. ENT: Nose without bleeding, purulent drainage or septal hematoma. Throat without erythema, tonsillar hypertrophy or exudate. Uvula midline. Airway patent. NECK: Trachea midline. No JVD or lymphadenopathy. Supple, nontender, no meningeal signs. CARDIOVASCULAR: Regular rate and rhythm without murmurs, gallops, or rubs. RESPIRATORY: Clear to auscultation. Breath sounds equal bilaterally. No wheezes , rales, or rhonchi. GASTROINTESTINAL: Abdomen soft, non-tender, nondistended. No hepato-splenomegaly , or palpable masses. No guarding. MUSCULOSKELETAL: She is able to lift both legs against gravity. NEUROLOGICAL: Awake and alert. Motor and sensory grossly within normal limits. Normal speech. Medications and IVs Current Medications Medications (Trade) Dose Ordered Sig/Ace Route Start Time Stop Time Status Last Admin (Depakote Er) 500 mg BID PO 01/07/18 13:00 01/10/18 07:39 Vancomycin HCl 1000 mg/Sodium Chloride 250 ml @ 250 mls/hr Q24H IV 01/08/18 11:00 01/09/18 11:00 Aztreonam 2000 mg/ Sodium Chloride 100 ml @ 200 mls/hr Q8H IV 01/07/18 18:00 01/10/18 09:32 Metronidazole 100 ml @ 100 mls/hr Q8H IV 01/07/18 16:00 01/10/18 07:39 Clindamycin/ Sodium Chloride 50 ml @ 100 mls/hr Q8H IV 01/07/18 17:00 01/10/18 07:40 ([place] 5-325 Mg) 1 tab Q4H PRN PO 01/08/18 09:45 01/08/18 15:11 ([place] 5-325 Mg) 2 tab Q4H PRN PO 01/08/18 09:45 01/10/18 07:39 (LaMICtal) 25 mg Q24H PO 01/08/18 21:00 01/09/18 22:45 (Morphine Inj) 2 mg Q3H PRN IV PUSH 01/09/18 09:30 01/09/18 10:42 (Morphine Inj) 4 mg PUMP OILER IV 01/10/18 06:00 01/10/18 23:59 A/P Assessment and Plan (1) Bipolar 1 disorder ICD Code: F31.9 - Bipolar disorder, unspecified (2) Hypokalemia ICD Code: E87.6 - Hypokalemia (3) Skin necrosis ICD Code: I96 - Gangrene, not elsewhere classified Status: Acute This is a 57 yo female with Left lower leg cellulitis - Received Vancomycin and Aztreonam in ER, drainage of the Left calf wound for the last 2 to 3 weeks, preceding penetrating accidental trauma, tobacco dependence, CT showed air in soft tissue, with diagnosis of 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 With Diagnosis of Left lower extremity Gas Gangrene status post Excisional debridement of soft tissue to the Left lower extremity with Vacuum placement, 01/07/[address] Sorin Winters. awaiting for vacuum change Bipolar Disorder - resumed patients home meds Hypokalemia - replaced CM consulted for DC needs DVT prophy SCD to right LE Code Status Full. Discussed Condition With patient and nurse Discharge Planning Once cleared by General Surgery and ID specialists. Anant Callejas MD January 10, 2018 09:37
--- NOTE | 2018-01-10 09:43 | HHI.PR ---
Subjective Subjective Notes no issue, left leg pain better Objective Vitals/I&O Vital Signs Date Time Temp Pulse Resp B/P (MAP) Pulse Ox O2 Delivery O2 Flow Rate FiO2 01/10/18 08:00 97.6 78 18 139/85 (103) 98 01/09/18 17:31 21 01/08/18 19:30 Nasal Cannula 2.00 Labs Date/Time Source Procedure Growth Status 01/07/18 10:15 Blood Peripheral Aerobic Blood Culture - Preliminary NO GROWTH IN 2 DAYS Resulted 01/07/18 10:15 Blood Peripheral Anaerobic Blood Culture - Preliminary NO GROWTH IN 2 DAYS Resulted 01/07/18 18:00 Wound Leg Fungal Smear - Final NO FUNGAL ELEMENTS SEEN. Resulted 01/07/18 18:00 Wound Leg Fungal Culture Pending Resulted Extremities: Other (vac good seal, no leak, less edema) A/P Assessment and Plan s/p I and D with vac LLE plan reg diet iv abx pain control vac change today- transition to wet to dry may need skin grafting in future Sorin Winters MD January 10, 2018 09:43
[2018-01-10 09:45] VITALS: O2SAT 97
[2018-01-10] MEDS: VANCOMYCIN INJ 1,000 MG in SODIUM CHLOR 0.9% 250 ML INJ 250 ML IV SCH (11:21)
[2018-01-10 12:00] VITALS: BP 122/79; PULSE 78; RESP 18; TEMP 97.6; O2SAT 98
[2018-01-10] MEDS: MORPHINE SULFATE 4 MG/ML INJ IV PUSH PRN (13:57)
--- NOTE | 2018-01-10 15:55 | PD.WCN.NOT ---
Wound Consult Description: Received consult for VAC management of LLE from Sherley CARBONE. Communicated with: RAF Rodriguez and HEBERT Gallo [address] [place] [address] Recommendation: Please Cleanse large wound to L israel with normal saline only and pat dry. Apply Santyl ointment to wound bed kelby thickness and cover with moistened to wound bed only. Cover with ABD pad, secured with rolled gauze and tape. Change dressing daily. Please cleanse wounds to L proximal israel and L medial israel with normal saline and pat dry.Cover wounds with gentle border adhesive foam dressing. Change dressing every 3 days or PRN if saturated or dislodged. Additional Information: Patient seen on with Sherley CARBONE for wound VAC dressing change post surgery to LLE. Removed Wound VAC dressing in place including one large black granufoam covering L israel wound and two smaller pieces of granufoam covering two smaller wounds to L proximal israel and medial israel. All epifanio holding granufoam in place to L israel wound were removed with staple remover. All open wounds were cleansed with normal saline and patted dry. Wound to L israel presents with ~70% red granulated tissue and ~30% thin yellow slough.Wound measures ~14cm x ~10.5cm x ~0.8cm. L proximal israel wound presents with 100% red granulation tissue and measures ~3.5cm x ~3cm x ~0.1cm. L medial israel wound presents with ~90% red tissue and ~10% white tissue. Wound measures ~1.5cm x ~ 1cm x ~0.5cm. All wounds have minimal sero-sanguinous drainage without odor. Periwound at 2 o'clock presents with pustule measures ~0.3cm x ~0.3cm and martial thickness skin loss. Due to Large wound on L israel with a depth of less than 1cm wound VAC is note recommended. Applied oil emulsion gauze over large open wound to L sin and covered with dry 4x4 gauze and ABD pad. Secured dressing with rolled gauze and tape. Non adhesive optifoam basic was applied to Proximal L israel wound and medial L israel wound and secured with rolled gauze and tape. Recommendations are noted above. [facility] January 10, 2018 15:55
[2018-01-10 16:00] VITALS: BP 121/87; PULSE 80; RESP 18; TEMP 98; O2SAT 97
[2018-01-10 20:00] VITALS: BP 123/70; PULSE 75; RESP 22; TEMP 97.7; O2SAT 96
[2018-01-10] MEDS: lamoTRIgine 25 MG TAB PO SCH (21:15)
[2018-01-11] VITALS: BP 134/81; PULSE 67; RESP 20; TEMP 97.9; O2SAT 97
[2018-01-11] MEDS: metroNIDAZOLE 500 MG INJ 100 ML IV SCH ×2 (00:23→08:09)
[2018-01-11] MEDS: CLINDAMYCIN 900 MG/NS PREMIX 50 ML IV SCH ×2 (01:31→08:09)
[2018-01-11] MEDS: AZTREONAM INJ 2,000 MG in SODIUM CHLORIDE 0.9% INJ 100 ML IV SCH ×2 (02:10→10:18)
[2018-01-11] MEDS: ACETAMINOPHEN/HYDROcodone 325 MG/5 MG TAB PO PRN ×2 (02:17→08:08)
[2018-01-11 08:00] VITALS: BP 120/79; PULSE 71; RESP 19; TEMP 97.2; O2SAT 97
[2018-01-11] MEDS: DIVALPROEX SODIUM E.R. 500 MG TAB PO SCH (08:08)
[2018-01-11] MEDS ORDERED: COLLAGENASE OINT 30 GM TUBE TOPICAL SCH (09:00)
[2018-01-11 09:25] VITALS: O2SAT 97
[2018-01-11] MEDS: VANCOMYCIN INJ 1,000 MG in SODIUM CHLOR 0.9% 250 ML INJ 250 ML IV SCH (11:23)
--- NOTE | 2018-01-11 11:39 | HHI.PR ---
Subjective Subjective Notes Resting in bed HEBERT Gallo at bedside to do dressing change Objective Vitals/I&O Vital Signs Date Time Temp Pulse Resp B/P (MAP) Pulse Ox O2 Delivery O2 Flow Rate FiO2 01/11/18 08:00 97.2 71 19 120/79 (93) 97 01/10/18 09:45 21 01/08/18 19:30 Nasal Cannula 2.00 Labs Date/Time Source Procedure Growth Status 01/07/18 10:15 Blood Peripheral Aerobic Blood Culture - Preliminary NO GROWTH IN 4 DAYS Resulted 01/07/18 10:15 Blood Peripheral Anaerobic Blood Culture - Preliminary NO GROWTH IN 4 DAYS Resulted 01/07/18 18:00 Wound Leg Fungal Smear - Final NO FUNGAL ELEMENTS SEEN. Resulted 01/07/18 18:00 Wound Leg Fungal Culture Pending Resulted Cardiovascular: Regular Lungs: Clear Abdomen: Non-distended, Non-tender Narrative Exam LEFT lower leg wound--- dressing removed--- far less exudate in the inferior portion than yesterday A/P Assessment and Plan 57 year old female POD4 I&D LLW with Wound Vac placement -Regular diet -Continue antibiotics ---transition to PO antibiotics per Dr. Ana Matta for pain; added breakthrough Morphine -Continue dressing change -GS will follow peripherally Sherley Rodriguez/Environmental Advisor RAF January 11, 2018 11:39
[2018-01-11 12:00] VITALS: BP 114/64; PULSE 73; RESP 18; TEMP 97.7; O2SAT 96
--- NOTE | 2018-01-11 13:50 | HHI.IDPN ---
Subjective Subjective Remarks doing good no diarrhea less pain no fever Antibiotics vanco azactam flagyl clinda Allergies: Coded Allergies: naproxen (Unverified Allergy, Mild, 01/07/18) penicillin G (Unverified Allergy, Mild, 01/07/18) Objective . Vital Signs Date Time Temp Pulse Resp B/P (MAP) Pulse Ox O2 Delivery O2 Flow Rate FiO2 01/11/18 12:00 97.7 73 18 114/64 (81) 96 01/11/18 09:25 97 21 01/11/18 08:00 97.2 71 19 120/79 (93) 97 01/11/18 00:00 97.9 67 20 134/81 (98) 97 01/10/18 20:00 97.7 75 22 123/70 (87) 96 01/10/18 16:00 98.0 80 18 121/87 (98) 97 Imaging Last Impressions Chest X-Ray 01/07/18 0956 Signed Impressions: Service Date/Time: Sunday, January 07, 2018 10:04 - CONCLUSION: Small opacity in the lower lateral right lung. No evidence of pneumothorax. Recommend followup films. Km Márquez MD Tibia/Fibula X-Ray 01/07/18 0000 Signed Impressions: Service Date/Time: Sunday, January 07, 2018 10:10 - CONCLUSION: 1. Osseous structures of the leg are intact. 2. Multifocal areas of gas in the soft tissues of the mid and distal leg without radiopaque foreign body. Km Márquez MD Lower Extremity CT 01/07/18 0000 Signed Impressions: Service Date/Time: Sunday, January 07, 2018 12:18 - CONCLUSION: Soft tissue gas seen on conventional radiographs is confined to the cutaneous and subcutaneous tissues of the mid to distal calf. No deep soft tissue gas is seen. The osseous structures are radiographically intact. Km Márquez MD Physical Exam CONSTITUTIONAL/GENERAL: This is a thin patient, in no apparent distress. TUBES/LINES/DRAINS: SKIN: No jaundice, rashes, or lesions. Skin temperature appropriate. Not diaphoretic. CARDIOVASCULAR: Regular rate and rhythm without murmurs, gallops, or rubs. No JVD. Peripheral pulses symmetric. Excellent 2/2 b/l DP pulses RESPIRATORY/CHEST: Symmetric, unlabored respirations. Clear to auscultation. Breath sounds equal bilaterally. No wheezes, rales, or rhonchi. GASTROINTESTINAL: Abdomen soft, non-tender, nondistended. No hepato-splenomegaly , or palpable masses. No guarding. Bowel sounds present. GENITOURINARY: Without palpable bladder distension. MUSCULOSKELETAL: Extremities without clubbing, cyanosis, no loss of skin appendages dressing in place; decrease edema no erythema, Lymphangitis resolved NEUROLOGICAL: Awake and alert. Motor and sensory grossly within normal limits. Follows commands c Assessment & Plan Remarks Gas gangrene LLE following traume - likley mixed aerobic/anaerobic infx: polimicrobial, including GAS, MRSA (S to clinda), PSAE and anaerobs - sp emeergent debridement, VAC High grade self reported PCN allergy:hives pt states she took Keflex uneventfully No e/o vascular insufficiency clinically despite + tobacco hx abx associated diarrhea REC's: dc vanco dc azactam start levaquin dc flagyl PO clinda gonsales tart Keflex - keflex can be stopped if GAS proven to be S rto clindamycin) cont abx x 14 days from the day of debridement OK to dc dw surgical team Trinity Perez MD January 11, 2018 13:50
[2018-01-11] MEDS ORDERED: CLINDAMYCIN 150 MG CAP PO SCH (14:00)
[2018-01-11] MEDS ORDERED: LEVOFLOXACIN 750 MG TAB PO SCH (14:00)
--- NOTE | 2018-01-11 14:50 | HHI.FF ---
Face to Face Verification Diagnosis: (1) Skin necrosis Home Health Nursing Order: Signs/symptoms of disease process Wound care and dressing changes Instructions: Place kelby thick amount of Santyl to exudate in wound bed and apply moist gauze; ABD and secure with wrap gauze; change daily I have seen patient Amy Louise on 01/11/18. My clinical findings support the need for the requested home health care services because: Limited ability to care for self High risk of falls I certify that my clinical findings support that this patient is homebound because: Post-op weakness Sherley RodriguezP/Customer Account Coordinator [employer] REMOVER January 11, 2018 14:50 Willian Pichardo MD January 11, 2018 14:56
[2018-01-11] MEDS ORDERED: CEPH500C PO (14:55)
[2018-01-11] MEDS ORDERED: CLIN300C5 PO (14:55)
[2018-01-11] MEDS ORDERED: HYDR-3516 PO (14:55)
[2018-01-11] MEDS ORDERED: LEVA750T9 PO (14:55)
[2018-01-11] MEDS ORDERED: NICOTINE 14 MG/24 HR PATCH T-DERMAL SCH (15:00)
--- NOTE | 2018-01-11 15:06 | HHI.DS ---
Discharge Summary Admission Date January 07, 2018 at 12:33 Discharge Date: January 11, 2018 Admitting Diagnosis leg infection (1) Bipolar 1 disorder ICD Code: F31.9 - Bipolar disorder, unspecified (2) Hypokalemia ICD Code: E87.6 - Hypokalemia (3) Skin necrosis ICD Code: I96 - Gangrene, not elsewhere classified Status: Acute Procedures Excisional debridement of soft tissue to left lower extremity with VAC placement 14 x 9 cm, 4 x 4 cm and 2 x 2 cm ulcerative debrided areas Brief History - From Admission This is a homeless woman who presented to [facility] ED with concern for leg infection. She states 6 weeks ago she scratched her leg on her bike. States it was healing well then three weeks ago she scratched it on a piece of metal at her boyfriends house. She states she had a tetanus shot 2 years ago. She was given another tetanus shot in the ED. Medical history significant for bipolar, denies any other medical problems including diabetes. She denies fevers and chills. States the leg has been draining and is painful. The patient received vancomycin and aztreonam in the ED. ER physician discussed case with ortho, ortho requested a CT with contrast to evaluate for abscess. She has a new PCP Dr. Traore. She also follows with Riaz De Jesus. CBC/BMP: 01/07/18 1010 01/08/18 1325 PE at Discharge Left lower leg in postop dressing Hospital Course Patient was admitted. General surgery was consulted. Underwent excisional debridement of soft tissue of left lower extremity with VAC placement. Infectious disease help comanage antibiotics. Patient's blood cultures were negative wound cultures grew out Pseudomonas, group A strep, and MRSA. Patient has met maximal benefit from hospitalization is clinically stable for discharge with home health and wound care. She is to be discharged on clindamycin and Levaquin and Keflex. NOTE: The patient can discontinue Keflex if her group a strep is sensitive to clindamycin, [place] finalized on [place]13 [place] [facility] [place] Pt Condition on Discharge: Stable Discharge Disposition: Disch w/ Home Health Serv Discharge Time: <= 30 minutes Discharge Instructions DIET: Follow Instructions for: As Tolerated, No Restrictions Activities you can perform: Weight Bearing as [place] Follow up Referrals: PCP Follow-up - 1 Week with [facility] - 1 Week with Sorin Winters MD New Medications: Clindamycin (Clindamycin) 300 Mg Cap 300 MG PO Q6H for Infection, #40 CAP 0 Refills Cephalexin (Cephalexin) 500 Mg Cap 500 MG PO Q6HR for Infection, #40 CAP Hydrocodone/Acetaminophen (Hydrocodone-Acetamin 5-325 mg) 5 Mg-325 Mg Tablet 1 TAB PO Q6HR PRN for pain, #60 TAB Levofloxacin (Levaquin) 750 Mg Tablet 750 MG PO DAILY for Infection, #10 TAB Continued Medications: Divalproex ER (Divalproex ER) 500 Mg Tab 500 MG PO BID for Control Seizures, #30 TAB 0 Refills Lamotrigine (Lamotrigine) 25 Mg Tab 25 MG PO DAILY for Control Seizures, #30 TAB 0 Refills Willian Pichardo MD January 11, 2018 15:05
[2018-01-11] MEDS ORDERED: CEPHALEXIN MONOHYDRATE 500 MG CAP PO SCH (18:00)
[2018-01-12] MEDS ORDERED: REMOVE OLD PATCH T-DERMAL SCH (09:00)
== END 2018-01-11 16:41 | disposition home health service (06) | DRG 854 ==
LOC: NEPC 09:32 → NEDA 12:33 → N07B 14:32
PROVIDERS: ADMIT Hospitalist; ATTEND Hospitalist
PROC: 0JBP0ZZ Excision of Left Lower Leg Subcutaneous Tissue and Fascia, Open Approach (ICD-10-PCS; principal; 2018-01-08)
PROC: 2W1RX6Z Compression of Left Lower Leg using Pressure Dressing (ICD-10-PCS; 2018-01-08)
DX: A48.0 Gas gangrene (principal); E11.52 Type 2 diabetes mellitus with diabetic peripheral angiopathy with gangrene; L03.116 Cellulitis of left lower limb; L02.416 Cutaneous abscess of left lower limb; E87.6 Hypokalemia; F31.9 Bipolar disorder, unspecified; F41.9 Anxiety disorder, unspecified; B95.62 Methicillin resistant Staphylococcus aureus infection as the cause of diseases classified elsewhere; B95.0 Streptococcus, group A, as the cause of diseases classified elsewhere; R21 Rash and other nonspecific skin eruption; E11.69 Type 2 diabetes mellitus with other specified complication; F17.210 Nicotine dependence, cigarettes, uncomplicated; R40.2410 Glasgow coma scale score 13-15, unspecified time; Z88.0 Allergy status to penicillin; Z59.0 Homelessness; Z83.3 Family history of diabetes mellitus; Z82.49 Family history of ischemic heart disease and other diseases of the circulatory system; Z23 Encounter for immunization
CPT/HCPCS: 71045; 73590; 73701; 80053; 83605; 83690; 83735; 84100; 84132; 85025; 85610; 85730; 86140; 86403; 87015; 87040; 87070; 87077; 87102; 87116; 87147; 87186; 87205; 87206; 90471; 90714; 93005; 94664; 96365; 96368; J0330; J1100; J1170; J2250; J2270; J2370; J2405; J3010; J3370; J7030; J7050; J7120; J7613; Q9967